=== PATIENT | male | born 1985 | race Caucasian/White ===

== ENCOUNTER 2021-07-15 23:47 | Emergency (ER) | payer OTHER ==
[~2021-07-15] VITALS: Ht 195.6 cm; Wt 81.7 kg
[2021-07-16 04:20] LABS: BASOPHILS ABSOLUTE AUTO 0.11 K/mm3 (0.00-0.23); BASOPHILS PERCENT AUTO 1 % (0-2); EOSINOPHILS ABSOLUTE AUTO 0.06 K/mm3 (0.00-0.68); EOSINOPHILS PERCENT AUTO 0 % (0-6); Hematocrit 22.7 % (37.0-53.0); Hemoglobin 6.6 g/dL (13.5-17.5); IMMATURE GRAN ABSOLUTE AUTO 0.12 K/mm3 (0.00-0.10); IMMATURE GRAN PERCENT AUTO 1 % (0-1); LYMPHOCYTES ABSOLUTE AUTO 2.01 K/mm3 (0.84-5.20); LYMPHOCYTES PERCENT AUTO 10 % (21-46); MONOCYTES ABSOLUTE AUTO 1.26 K/mm3 (0.16-1.47); MONOCYTES PERCENT AUTO 7 % (4-13); Mean Corpuscular HGB 18.3 pg (26.0-34.0); Mean Corpuscular HGB Conc 29.1 g/dL (31.5-36.5); Mean Corpuscular Volume 63 fL (80-100); NEUTROPHILS ABSOLUTE AUTO 15.85 K/mm3 (1.96-9.15); NEUTROPHILS PERCENT AUTO 82 % (41-73); Platelet Count 566 K/mm3 (150-400); RDW Coefficient Variation 17.4 % (11.7-14.2); RDW Standard Deviation 39.4 fL (35.1-46.3); Red Blood Cell Count 3.61 M/mm3 (4.30-5.90); White Blood Cell Count 19.41 K/mm3 (4.00-11.30)
[2021-07-16 04:37] LABS: Anion Gap 7 mmol/L (6-16); Blood Urea Nitrogen 23 mg/dL (8-24); Bun/Creatinine Ratio 25.9 (12.0-20.0); CO2, Blood 24 mmol/L (21-32); Calcium, Blood 9.3 mg/dL (8.5-10.1); Chloride, Blood 104 mmol/L (98-108); Creatinine, Blood 0.89 mg/dL (0.60-1.20); Glomerular Filtration Rate >60 (60-); Glucose, Blood 130 mg/dL (70-99); Potassium, Blood 4.3 mmol/L (3.5-5.5); Sodium, Blood 135 mmol/L (136-145)
[2021-07-16 05:12] LABS: BASOPHILS ABSOLUTE AUTO 0.11 K/mm3 (0.00-0.23); BASOPHILS PERCENT AUTO 1 % (0-2); EOSINOPHILS ABSOLUTE AUTO 0.04 K/mm3 (0.00-0.68); EOSINOPHILS PERCENT AUTO 0 % (0-6); Hematocrit 20.9 % (37.0-53.0); IMMATURE GRAN ABSOLUTE AUTO 0.09 K/mm3 (0.00-0.10); IMMATURE GRAN PERCENT AUTO 1 % (0-1); LYMPHOCYTES ABSOLUTE AUTO 1.55 K/mm3 (0.84-5.20); LYMPHOCYTES PERCENT AUTO 9 % (21-46); MONOCYTES ABSOLUTE AUTO 1.17 K/mm3 (0.16-1.47); MONOCYTES PERCENT AUTO 7 % (4-13); Mean Corpuscular HGB 17.8 pg (26.0-34.0); Mean Corpuscular HGB Conc 27.8 g/dL (31.5-36.5); Mean Corpuscular Volume 64 fL (80-100); Mean Platelet Volume 8.8 fL (9.1-12.4); NEUTROPHILS ABSOLUTE AUTO 14.81 K/mm3 (1.96-9.15); NEUTROPHILS PERCENT AUTO 83 % (41-73); Platelet Count 489 K/mm3 (150-400); RDW Coefficient Variation 17.4 % (11.7-14.2); Red Blood Cell Count 3.26 M/mm3 (4.30-5.90); White Blood Cell Count 17.77 K/mm3 (4.00-11.30)
[2021-07-16 05:14] LABS: Hemoglobin 5.8 g/dL (13.5-17.5)
[2021-07-16 05:36] LABS: International Normalized Ratio 1.05
[2021-07-16 06:05] LABS: Alanine Aminotransfer (ALT/SGP 16 U/L (12-78); Albumin, Blood 3.1 g/dL (3.4-5.0); Albumin/Globulin Ratio 0.8 (0.8-1.8); Alk Phos 89 U/L (50-136); Anion Gap 8 mmol/L (6-16); Aspartate Aminotrans (AST/SGOT 12 U/L (12-37); Bilirubin, Total 0.5 mg/dL (0.1-1.0); Blood Urea Nitrogen 22 mg/dL (8-24); Bun/Creatinine Ratio 24.9 (12.0-20.0); CO2, Blood 24 mmol/L (21-32); Calcium, Blood 8.6 mg/dL (8.5-10.1); Chloride, Blood 101 mmol/L (98-108); Creatinine, Blood 0.88 mg/dL (0.60-1.20); Globulin, Blood 3.7 g/dL (2.2-4.0); Glomerular Filtration Rate >60 (60-); Glucose, Blood 116 mg/dL (70-99); Potassium, Blood 3.9 mmol/L (3.5-5.5); Sodium, Blood 133 mmol/L (136-145); Total Protein, Blood 6.8 g/dL (6.4-8.2)
[2021-07-16 06:38] LABS: Source, Urine Clean Catch
[2021-07-16 06:45] LABS: Bilirubin, Urine Neg (Neg); Blood, Urine Neg (Neg); Glucose Qualitative, Urine Neg (Neg); Ketones, Urine Neg (Neg); Leukocyte Esterase, Urine Neg (Neg); Nitrite, Urine Neg (Neg); Protein, Urine 1+ (Neg); Urobilinogen, Urine NORM (Normal)
[2021-07-16 06:46] LABS: Influenza A, PCR NEGATIVE (NEGATIVE); Influenza B, PCR NEGATIVE (NEGATIVE); Resp Syncytial Virus, PCR NEGATIVE (NEGATIVE); SARS-Cov-2 (COVID-19) PCR, MMC NEGATIVE (NEGATIVE)
[2021-07-16 06:52] LABS: Appearance, Urine Clear (Clear); Color, Urine Yellow (P-Yellow)
== END 2021-07-16 08:45 | disposition short-term general hospital (02) ==
LOC: ER 23:47
PROVIDERS: Student in an Organized Health Care Education/Training Program
DX: R20.2 Paresthesia of skin (principal); Z91.030 Bee allergy status; F17.210 Nicotine dependence, cigarettes, uncomplicated
CPT/HCPCS: 0241U; 36415; 36430; 71045; 71275; 73630; 74174; 75635; 80048; 80053; 83605; 85025; 85610; 85730; 86850; 86900; 86901; 86923; 87040; 93005; 93010; 96374; 96375; 99285-25; A9270; C9113; J1170; J1644; J7030; P9016; Q9967

== ENCOUNTER 2022-03-07 09:38 | Inpatient (IN) | payer OTHER ==
[~2022-03-07] VITALS: Ht 195.6 cm; Wt 88.0 kg
[2022-03-07 10:30] LABS: BASOPHILS PERCENT AUTO 1 % (0-2); EOSINOPHILS PERCENT AUTO 1 % (0-6); Hematocrit 18.2 % (37.0-53.0); LYMPHOCYTES PERCENT AUTO 18 % (21-46); MONOCYTES PERCENT AUTO 8 % (4-13); Mean Corpuscular HGB 14.3 pg (26.0-34.0); Mean Corpuscular HGB Conc 24.7 g/dL (31.5-36.5); Mean Corpuscular Volume 58 fL (80-100); Mean Platelet Volume 9.3 fL (9.1-12.4); Platelet Count 561 K/mm3 (150-400); RDW Coefficient Variation 19.4 % (11.7-14.2); RDW Standard Deviation 38.7 fL (35.1-46.3); Red Blood Cell Count 3.14 M/mm3 (4.30-5.90); White Blood Cell Count 9.02 K/mm3 (4.00-11.30)
[2022-03-07 10:40] LABS: Hemoglobin 4.5 g/dL (13.5-17.5)
[2022-03-07 10:44] LABS: BASOPHILS ABSOLUTE AUTO 0.08 K/mm3 (0.00-0.23); IMMATURE GRAN ABSOLUTE AUTO 0.04 K/mm3 (0.00-0.10); IMMATURE GRAN PERCENT AUTO 1 % (0-1); LYMPHOCYTES ABSOLUTE AUTO 1.55 K/mm3 (0.84-5.20); NEUTROPHILS ABSOLUTE AUTO 6.37 K/mm3 (1.96-9.15); NEUTROPHILS PERCENT AUTO 72 % (41-73); NRBC ABSOLUTE 0.02 K/mm3 (0.00-0.02); NRBC Auto 0.2 /100 WBC (0.0-0.2)
[2022-03-07 10:46] LABS: Albumin, Blood 3.9 g/dL (3.4-5.0); Albumin/Globulin Ratio 1.1 (0.8-1.8); Bilirubin, Total 0.4 mg/dL (0.1-1.0); Bun/Creatinine Ratio 20.7 (12.0-20.0); Calcium, Blood 8.8 mg/dL (8.5-10.1); Creatinine, Blood 0.82 mg/dL (0.60-1.20); Globulin, Blood 3.7 g/dL (2.2-4.0); Potassium, Blood 3.8 mmol/L (3.5-5.5); Total Protein, Blood 7.6 g/dL (6.4-8.2)
[2022-03-07] MEDS ORDERED: ATOR10 PO (10:53)
[2022-03-07] MEDS ORDERED: ELIQUIS2.5 MG PO (10:53)
[2022-03-07] MEDS ORDERED: GABA100 PO (10:53)
[2022-03-07] MEDS ORDERED: OMEP20ER PO (10:59)
[2022-03-07 13:22] LABS: Percent Saturation 1.8 % (20.0-50.0)
[2022-03-07 13:49] LABS: U Amphetamine Screen Not Detected; U Barbituate Screen Not Detected; U Benzodiazapine Screen Not Detected; U Buprenorphine Screen Not Detected; U Cannabinoids Screen DETECTED; U Cocaine Screen Not Detected; U Methadone Screen Not Detected; U Methamphetamine Screen Not Detected; U Opiates Screen Not Detected; U Oxycodone Screen Not Detected; U Phencyclidine Screen Not Detected; U Propoxyphene Screen Not Detected
--- NOTE | 2022-03-07 18:24 | NUR ---
SHIFT SUMMARY; PATIENT ARRIVED TO UNIT APPROX 1600 FROM THE ER. HE WAS RECEIVING BLOOD TRANSFUSION ON ARRIVAL. VS ARE STABLE. HE IS AO X 4. PER REPORT HANNA HAD SYNCOPAL EPISODE AT [facility] AND COLLAPSED IN A CHAIR. LABS SHOWED HE HAD A HGB OF 4.56 AND A HCT OF 18. ORDER WHILE IN ER FOR 2 UNITS PRBC'S. PATIENT VERY PALE ON ARRIVAL TO MED FLOOR. DIET ORDER IS FOR CLEAR LIQUIDS AND WAS CONSULTED IN ED FOR EGD. PROCEDURE WILL BE SUNDAY HANNA HAD TAKEN ELOQUIS THIS AM AND WOULD NEED 48 HOURS OFF PROCEDURE FOR IT TO BE SAFER. SKIN ASSESSMENT DONE BY 2 RN'S ON ARRIVAL. PATIENT HAD 2 SCARS FROM JUNE SURGERY ON MEDIAL ASPECT OF BILATERAL KNEES. HE ALSO HAS A SCAR IN LEFT GROIN AREA. PER PAITENT HE HAS A VASCULAR STENT IN HIS GROIN AND MULTIPLE CLOTS WERE REMOVED FROM HIS LEGS WHILE AT [facility]. MEDICATIONS ARE RECONCILED AND UPDATED IN [facility]. WILL CONTINUE TO MONITOR THIS PATIENT CLOSELY UNTIL REPORT AND HAND OFF TO NOC SHIFT RN.
[2022-03-07 21:18] LABS: Hematocrit 21.1 % (37.0-53.0); Hemoglobin 6.1 g/dL (13.5-17.5)
--- NOTE | 2022-03-08 03:05 | NUR ---
PT REPORTS HE IS "TIRED." HE ALSO REPORTS HE "SMOKES THC, HAS PTSD, ANXIETY" AND REPORTS IRRITATION. PT REPORTS HE IS GOING TO PULL THE IV OUT, HE DOESN'T WANT ANY IV FLUIDS, ANY MORE BLOOD, AT THIS TIME. I EXPLAINED TO PT, NECESSITY OF IV - PT REFUSING. I REPORTED AM LAB DRAW, AND POTENTIAL FOR NEED OF MORE BLOOD - PT IS CURRENTLY REFUSING. I ALSO REPORTED FOR THE EGD SCHEDULED FOR SUNDAY, THAT HE WILL NEED AN IV AT THAT TIME - "WE CAN DISCUSS THAT THEN." PT REPORTS HE HASN'T BEEN SLEEPING, AND JUST GENERAL IRRITATION. CALL LIGHT WITHIN REACH.
--- NOTE | 2022-03-08 03:10 | NUR ---
UPDATED BUCK HENDERSON REGARDING PT STATUS - UPDATED ON EVENTS DOCUMENTED IN LAST NN.
--- NOTE | 2022-03-08 03:15 | NUR ---
CALL PLACED TO DR. OSWALD - RELAYED PT IS REFUSING AN IV NOW, PRBC'S FINISHED INFUSING, AND PT IS REFUSING IV FLUIDS, AND REPORTED PROTONIX DRIP WAS NEVER HUNG TODAY. I REPORTED TO DR. OSWALD H/H SCHEDULED FOR 5 AM. HE STRONGLY ENCOURAGED FOR PT TO RECEIVE THE PROTONIX DRIP TO HELP WITH ANY POTENTIAL INTERNAL BLEEDING. I RELAYED TO DR. OSWALD PT WAS GUAIC POSITIVE IN ER, BUT NO BM'S TONIGHT. DR. OSWALD IF PT REFUSES PROTONIX - PLEASE DOCUMENT THIS, ALSO RELAYED TO DR. OSWALD IV WAS REMOVED PER PT REQUEST.
--- NOTE | 2022-03-08 03:20 | NUR ---
I INSTRUCTED THE PT ON THE NEED FOR THE PROTONIX DRIP - PT REFUSES AN IV AND REFUSES THE PROTONIX DRIP. HE REPORTS HE "IS TIRED, AND DOESN'T WANT ANY LINES ATTACHED TO HIM." CALL LIGHT WITHIN REACH. BED IN LOW POSITION.
--- NOTE | 2022-03-08 04:37 | NUR ---
SEE PREVIOUS NOTES ON PROTONIX DRIP - PT REFUSING.
--- NOTE | 2022-03-08 04:52 | NUR ---
SHIFT SUMMARY - SEE PREVIOUS NOTES THIS SHIFT. IV REMOVED PER PT REQUEST - NOTIFIED. PT HAS DECLINED CARE THE NIGHT HAS PROGRESSED - SEE NN. VERA CONSULT IN PLACE - PT IS AWARE HE HAS AN EGD SCHEDULED FOR SUNDAY AND THIS PROCEDURE WILL REQUIRE AN IV. PT REPORTED AT THE BEGINNING OF THE SHIFT, FRUSTRATION WITH CARE HE RECEIVED AT ANOTHER FACILITY, WHERE HE WAS MISDIAGNOSED WITH ATHLETE'S FOOT, BUT ACTUALLY HAD NECROSIS TO TOES, THAT REQUIRED TREATMENT AT [facility] WHERE HE REPORTED BEING DIAGNOSED WITH BLOOD CLOTS. REPORT FROM PREVIOUS DAY SHIFT RN, IS PT HAS A HISTORY OF TBI AND WAS IN THE . PT'S MAIN COMPLAINT HAS BEEN LACK OF SLEEP TONIGHT. FLUIDS AT BEDSIDE. CALL LIGHT WITHIN REACH. BED IN LOW POSITION. WILL CONTINUE TO MONITOR UNTIL AM SHIFT CHANGE.
[2022-03-08 05:33] LABS: Hematocrit 25.2 % (37.0-53.0); Hemoglobin 7.5 g/dL (13.5-17.5)
--- NOTE | 2022-03-08 06:01 | NUR ---
PT IS NOW REFUSING TO WEAR THE TELE MONITOR. PT REPORTED HE PLANS TO LEAVE THIS AM, AFTER HE GETS AH[place] OF HIS RIDE HOME. I EXPLAINED THE RISKS OF POTENTIALLY BLEEDING OUT, DUE TO THE LOW H&H HE CAME IN WITH, THAT HE WILL NOT BE RECEIVING THE EGD DIAGNOSTIC TEST ON SUNDAY. PT REPORTED "I WILL BE OKAY." I EXPLAINED TO THE PT HE WILL NEED TO SIGN AN AMA FORM PRIOR TO LEAVING. I CONTACTED DR. MARGRET SCHNEIDER UPDATED ON THE ABOVE INFORMATION. I WILL CONTINUE TO MONITOR PT UNTIL AM SHIFT CHANGE. I WILL REPORT THIS INFORMATION TO ONCOMING SHIFT TODAY. CALL LIGHT WITHIN REACH. BED IN LOW POSITION. FLUIDS AT BEDSIDE. URINAL AT BEDSIDE.
--- NOTE | 2022-03-08 10:04 | NUR ---
0730 SPOKE WITH PT ABOUT RISK AND BENEFITS FOR STAYING IN THE HOSPITAL. INSISTANT THAT HE GOES HOME. DOESNT WANT EGD, FEELING BETTER SINCE BLOOD AND WANTS TO GET HOME TO SMOKE WEED. HE STATES HE HAS PTSD AND FEELING VERY ANXIOUS. UNDERSTANDS THE RISKS AND STILL INSISTS HE'S LEAVING WHEN GIRLFRIEND GETS HERE. RN ENCOURAGED PT TO F/U WITH PCP AND HEMETOLOGY. PT SIGNED AMA FORM UNDERSTANDING RISKS ALL THE WAY TO . DR SMITH CAME TO VISIT WITH PT BEFORE HE LEFT.
== END 2022-03-08 09:15 | disposition left against medical advice (07) | DRG 812 ==
LOC: ER 09:38 → MEDS 12:37
PROVIDERS: Nurse Practitioner Acute Care; Physician Assistant; ADMIT Internal Medicine
PROC: 30233N1 Transfusion of Nonautologous Red Blood Cells into Peripheral Vein, Percutaneous Approach (ICD-10-PCS; principal; 2022-03-07)
DX: D62 Acute posthemorrhagic anemia (principal); K92.2 Gastrointestinal hemorrhage, unspecified; I73.9 Peripheral vascular disease, unspecified; E78.5 Hyperlipidemia, unspecified; F43.12 Post-traumatic stress disorder, chronic; Z28.21 Immunization not carried out because of patient refusal; Z87.891 Personal history of nicotine dependence; Z95.828 Presence of other vascular implants and grafts; Z91.030 Bee allergy status; Z91.038 Other insect allergy status; Z79.01 Long term (current) use of anticoagulants; Z79.899 Other long term (current) drug therapy
CPT/HCPCS: 36415; 36430; 80053; 82272; 82728; 83540; 83550; 85014; 85018; 85025; 86850; 86870; 86900; 86901; 86902; 86905; 86922; 93005; 93010; 96374; 96376; 99285-25; A9270; C9113; J7030; J7040; P9016

== ENCOUNTER 2022-08-03 11:35 | Day surgery (SDC) | payer OTHER ==
[~2022-08-03] VITALS: Ht 195.6 cm; Wt 89.8 kg
[~2022-08-03 11:35] MED LIST: ATOR10 PO; ELIQUIS2.5 MG PO; GABA100 PO; OMEP20ER PO
[2022-08-03] MEDS ORDERED: PANT20 (12:40)
[2022-08-03 14:25] VITALS: BP 141/77
== END 2022-08-03 14:00 | disposition home or self-care (01) ==
LOC: ORSCSDS 11:35
PROVIDERS: Internal Medicine Gastroenterology
PROC: 0DB68ZX Excision of Stomach, Via Natural or Artificial Opening Endoscopic, Diagnostic (ICD-10-PCS; principal; 2022-08-03 13:00)
DX: D50.9 Iron deficiency anemia, unspecified (principal); K44.9 Diaphragmatic hernia without obstruction or gangrene; K20.90 Esophagitis, unspecified without bleeding; I73.9 Peripheral vascular disease, unspecified; Z87.19 Personal history of other diseases of the digestive system; Z87.891 Personal history of nicotine dependence; Z79.899 Other long term (current) drug therapy
CPT/HCPCS: 88305; 88342; J2704; J7120